=== PATIENT | female | born 1955 | race Caucasian/White ===

== ENCOUNTER 2016-11-26 21:13 | Emergency (ER) | payer BC ==
[2016-11-26 21:48] LABS: BASOPHILS % 0.5 (0.0-1.5); EOSINOPHILS % 2.2 % (0.0-6.8); MEAN CORPUSCULAR HEMOGLOBIN 29.5 pg (28.0-34.0); MEAN CORPUSCULAR VOLUME 87.5 fl (80.0-100.0); MONOCYTES % 5.1 % (0.0-11.0); NEUTROPHILS # 5.9 # k/uL (1.4-7.7)
--- NOTE | 2016-11-26 21:53 | ED Physician Documentation ---
General Adult - HISTORIAN Historian: patient, spouse - HPI Stated Complaint: Low sodium Chief Complaint: General Adult Further Comments: yes (61 year old female patient sent in by [facility] urgent care for re-evaluation of Na yazan. Patient was seen at the urgent care for Nausea, vomiting and abdominal pain; lab drawn, unable to start IV, went home on PO's. When lab results came back tonight, provider called patient and instructed her to go to ER for re-evaluation of Na 128. Patient states she feels better tonight, has been able to drink approximately 64 oz of fluids, states her abdominal pain is gone.) - ROS CONST: fever, weakness, chills EYES/ENT: none CVS/RESP: none GI/: abdominal pain, nausea, diarrhea. denies: vomiting MS/SKIN/LYMPH: none NEURO/PSYCH: dizziness - PAST HX Past History: hypertension Other History: other (HLD, GERD, ) Allergies/Adverse Reactions: Allergies Allergy/AdvReac Type Severity Reaction Status Date / Time amoxicillin trihydrate Allergy Verified 11/26/16 21:40 [From Augmentin] aspartame Allergy Verified 11/26/16 21:40 clarithromycin [From Biaxin] Allergy Verified 11/26/16 21:40 erythromycin base Allergy Verified 11/26/16 21:39 [Erythromycin Base] potassium clavulanate Allergy Verified 11/26/16 21:40 [From Augmentin] tramadol Allergy Verified 11/26/16 21:40 cephalexin monohydrate AdvReac Severe Nausea/Vomi Verified 11/26/16 21:39 [From Keflex] ting Sulfa (Sulfonamide AdvReac Severe Nausea/Vomi Verified 11/26/16 21:39 Antibiotics) ting Home Medications: Ambulatory Orders Medication Instructions Recorded Diltiazem HCl [Diltiazem ER] 180 mg PO D 03/17/14 Loratadine [Claritin] 10 mg PO D 03/17/14 Metoprolol Tartrate [Lopressor] 100 mg PO DAILY 03/17/14 Multivitamin [Tab-A-Dennise] 1 each PO QD 03/17/14 Piroxicam [Feldene] 20 mg PO D 03/17/14 SUMAtriptan SUCCINATE [Imitrex] 25 mg PO D PRN 03/17/14 Simvastatin [Zocor] 20 mg PO HS 03/17/14 Benazepril/Hydrochlorothiazide 1 each PO 11/26/16 [Lotensin Hct 5-6.25 Tablet] Gabapentin [Gabapentin] 600 11/26/16 Sertraline HCl [Zoloft] 50 mg PO DAILY 11/26/16 - SOCIAL HX Smoking History: non-smoker - FAMILY HX Family History: No - VITAL SIGNS Vital Signs: Vital Signs Temp Pulse Resp BP Pulse Ox 98.4 F 83 16 131/74 98 11/26/16 21:36 11/26/16 21:36 11/26/16 21:36 11/26/16 21:36 11/26/16 21:36 - REVIEWED ASSESSMENTS Nursing Assessment Reviewed: Yes Vitals Reviewed: Yes Progress - Progress Progress: Hyponatremia resolved. K 3.0 - will give 20 meq KCL here and discharge home with 2 tabs. Reviewed lab with patient and questions answered. ED Results Lab/Radiology - Lab Results Lab Results: Lab Results 11/26/16 21:41 WBC 9.80 K/ul K/ul (4.00-12.00) RBC 4.60 M/ul M/ul (3.90-5.20) Hgb 13.6 g/dL g/dL (12.0-16.0) Hct 40.2 % % (34.5-46.5) MCV 87.5 fl fl (80.0-100.0) MCH 29.5 pg pg (28.0-34.0) MCHC 33.7 g/dL g/dL (30.0-36.0) RDW 14.5 % H % (11.3-14.3) Plt Count 358 K/mm3 K/mm3 (130-400) Neut % (Auto) 60.0 % % (39.0-79.0) Lymph % (Auto) 30.0 % % (16.0-50.0) Wheeler % (Auto) 5.1 % % (0.0-11.0) Eos % (Auto) 2.2 % % (0.0-6.8) Baso % (Auto) 0.5 (0.0-1.5) Neut # 5.9 # k/uL # k/uL (1.4-7.7) Lymph # 2.9 # k/uL # k/uL (0.6-4.0) Wheeler # 0.5 # k/uL # k/uL (0.0-0.9) Eos # 0.2 # k/uL # k/uL (0.0-0.6) Baso # 0.0 # k/uL # k/uL (0.0-0.5) Reactive Lymphs % 2.2 % % (0.0-5.0) Reactive Lymphs # 0.2 # k/uL # k/uL (0.0-0.8) - Orders Orders: ED Orders Category Date Time Status CBC/PLATELET/DIFF Stat Lab 11/26/16 21:41 Completed CMP Stat Lab 11/26/16 21:40 Received General Adult Physical Exam - PHYSICAL EXAM GENERAL APPEARANCE: no distress EENT: eye inspection normal, ANNY RESPIRATORY: no resp distress, chest non-tender, breath sounds normal CVS: reg rate & rhythm, heart sounds normal, equal pulses, no murmur, no gallop , PMI nml, no JVD, no friction rub, 24 ABDOMEN: soft, no organomegaly, normal bowel sounds, no abdominal bruit, no distension SKIN: normal color, warm/dry, NR, INT, PAL, DR EXTREMITIES: non-tender, normal range of motion, no evidence of injury, no edema , J, [employer] NEURO: oriented X3, CN's nml as tested, motor nml, sensation nml, mood/affect nml Discharge Additional Instructions: Na 134 Continue your clear liquids and advance diet as tolerated. Continue your Zofran as needed for nausea Diet: Clear liquids Sprite/7-up Juices apple, white grape Gatorade/Powerade Jello Popsicles When tolerating clear liquids, advance to bland diet - such as crackers , rice, bananas or toast Return to the emergency department or call your doctor, if you are having severe abdominal pain, fever >101.0, or if there is blood in the vomit or diarrhea, or you cannot keep down liquids or solid food. Home Medications: Ambulatory Orders Diltiazem HCl [Diltiazem ER] 180 mg PO D 03/17/14 Loratadine [Claritin] 10 mg PO D 03/17/14 Metoprolol Tartrate [Lopressor] 100 mg PO DAILY 03/17/14 Multivitamin [Tab-A-Dennise] 1 each PO QD 03/17/14 Piroxicam [Feldene] 20 mg PO D 03/17/14 SUMAtriptan SUCCINATE [Imitrex] 25 mg PO D PRN 03/17/14 Simvastatin [Zocor] 20 mg PO HS 03/17/14 Benazepril/Hydrochlorothiazide [Lotensin Hct 5-6.25 Tablet] 1 each PO 11/26/16 Gabapentin [Gabapentin] 600 11/26/16 Sertraline HCl [Zoloft] 50 mg PO DAILY 11/26/16 Condition: Stable Disposition: 01 HOME, SELF-CARE Decision to Admit: NO
[2016-11-26 22:02] LABS: eGFR (African) > 60; eGFR (Non-African) > 60
[2016-11-26] MEDS ORDERED: POTASSIUM CHLORIDE 20 MEQ TABLET.ER PO ONE (22:32)
[2016-11-26 23:13] VITALS: BP 123/72
== END 2016-11-26 22:50 | disposition home or self-care (01) ==
LOC: ED 21:13 → EDSTATUS 21:14 → ED 22:50
DX: E87.1 Hypo-osmolality and hyponatremia (principal); R10.9 Unspecified abdominal pain
CPT/HCPCS: 80053; 85025; A9270; S1016